=== PATIENT | female | born 1980 | race African-American/Black ===

== ENCOUNTER → 2024-08-23 | Outpatient (CLI) | payer OTHER | LOC: M WHC 07:19 | PROVIDERS: ATTEND Physician Assistant | DX: Z12.31 Encounter for screening mammogram for malignant neoplasm of breast (principal); N63.25 Unspecified lump in the left breast, overlapping quadrants ==

== ENCOUNTER → 2024-10-03 | Outpatient (CLI) | payer OTHER | LOC: M WHC 13:57 | PROVIDERS: ATTEND Physician Assistant | DX: R92.2 Inconclusive mammogram (principal); N63.22 Unspecified lump in the left breast, upper inner quadrant | CPT/HCPCS: 77065; G0279 ==

== ENCOUNTER 2024-12-15 08:15 | Day surgery (SDC) | payer OTHER ==
[~2024-12-15] VITALS: Ht 165.1 cm; Wt 77.6 kg
[~2024-12-15 08:15] MED LIST: CETI-24 PO; DOXY50CA PO; OMEG10002 PO; PANT40TA29 PO; THERTAB52 PO; VITATAB73 PO; fentaNYL 100 MCG/2 ML INJECTION As Ordered ONE
[2024-12-15] MEDS ORDERED: propofoL 200 MG/20 ML VIAL As Ordered ONE (09:06)
[2024-12-15] MEDS ORDERED: LIDOCAINE 2% 100MG/5ML SDV (FOR ANES.) As Ordered ONE (09:06)
[2024-12-15 09:44] VITALS: TEMP 97.4
[2024-12-15 10:15] VITALS: BP 103/68; O2SAT 95
== END 2024-12-15 10:20 | disposition home or self-care (01) ==
LOC: M OPP 08:15
PROVIDERS: ATTEND Surgery
DX: K31.89 Other diseases of stomach and duodenum (principal); Z79.899 Other long term (current) drug therapy
CPT/HCPCS: 43239; 88305; 91035; J3010

== ENCOUNTER → 2024-12-22 | Outpatient (CLI) | payer OTHER ==
[~2024-12-22] MED LIST changes: -fentaNYL 100 MCG/2 ML INJECTION As Ordered ONE
== END ==
LOC: M RAD 12:54
PROVIDERS: ATTEND Surgery
DX: Z48.815 Encounter for surgical aftercare following surgery on the digestive system (principal)